=== PATIENT | male | born 1930 | race Caucasian/White ===

== ENCOUNTER 2017-01-21 01:51 | Emergency (ER) | payer MEDICARE, BC ==
[2017-01-21] MEDS ORDERED: Morphine 2 MG/ML SYRINGE ONE (02:28)
--- OUTSIDE RECORDS SUMMARY | 2017-01-22 13:20 | XMS | Clinical Summary ---
:1930 Author Organization [facility] Address [address] [place] [address] Phone Care Team Providers Name Role Phone , Primary Care Provider Unavailable Allergies Not on File Current Medications Not on file Active Problems Not on file Social History Tobacco Use Types Packs/Day Years Used Date Never Assessed Sex Assigned at Date Recorded Not on file Last Filed Vital Signs Not on file Plan of Treatment Not on file Results Not on filefrom Last 3 Months
== END 2017-01-21 04:12 | disposition home or self-care (01) ==
LOC: ERS 01:51
DX: R33.9 Retention of urine, unspecified (principal); E78.5 Hyperlipidemia, unspecified; I10 Essential (primary) hypertension
CPT/HCPCS: 51703; J2270

== ENCOUNTER 2017-10-28 10:38 | Observation (INO) | payer MEDICARE, BC ==
[2017-10-28 11:15] LABS: Clarity CLOUDY (Clear); Leukocyte Unable to Interpret (Negative); Nitrite Unable to Interpret (Negative); Specific Gravity, Urine 1.013 (1.002-1.036)
[2017-10-28 11:16] LABS: Bilirubin Unable to Interpret (Negative); Blood, Urine Unable to Interpret (Negative); Glucose, Urine (Dipstick) Unable to Interpret mg/dL (Negative); Protein, Urine (Dipstick) Unable to Interpret mg/dL (Neg-Trace); RBC/HPF GREATER THAN 50-TNTC HPF (0-3); Urobilinogen UNABLE TO INTERPRET mg/dL (0.2-1.0)
[2017-10-28 11:17] LABS: Bacteria/HPF None Seen HPF (None Seen); Hyaline Casts/LPF NONE SEEN LPF (0-3 Hyaline); Other Microscopic Description Less than 2 mL rec'd; Squamous Epithelial None Seen HPF (0-3)
[2017-10-28 11:55] LABS: #Eosinphils 0.1 thou/uL (0.0-0.7); #Lymphocytes 0.9 thou/uL (1.20-3.40); #Monocytes 0.5 thou/uL (0.11-0.59); #Neutrophils 4.6 thou/uL (1.40-6.50); %Basophils 0.4 % (0.0-1.0); %Eosinophils 1.3 % (0.0-10.0); %Lymphocytes 15.2 % (21.0-51.0); %Monocytes 7.7 % (0.0-10.0); %Neutrophils 75.5 % (42.0-75.0); Hemoglobin 13.4 g/dL (14.0-18.0); Mean Corpuscular HGB CONC 33.6 g/dL (32.0-36.0); Mean Corpuscular Hemoglobin 34.3 pg (27.0-31.0); Mean Platelet Volume 7.7 fL (7.4-10.4); Platelet Count 224 thou/uL (130-400); RBC Distribution Width 12.7 % (11.5-14.5); Red Blood Cell (RBC) Count 3.91 mill/uL (4.70-6.10); White Blood Cell (WBC) Count 6.1 thou/uL (4.8-10.8)
[2017-10-28 12:03] LABS: INR-International Normal Ratio 1.1; PTT 31.5 SEC (22.9-36.1)
[2017-10-28 12:16] LABS: Anion Gap 12 mmol/L (10-20); BUN (Urea Nitrogen) 23 mg/dL (8.4-25.7); Calc. Creatinine Clearance 0 mL/min (70-130); Calcium 9.7 mg/dL (7.8-10.44); Carbon Dioxide 25 mmol/L (23-31); Chloride 105 mmol/L (98-107); Estimated GFR-MDRD 57; Glucose 108 mg/dL (83-110); Potassium 4.9 mmol/L (3.5-5.1); Sodium 137 mmol/L (136-145)
[2017-10-28] MEDS ORDERED: Lidocaine 2% Jelly 5 ML TUBE ONE ×2 (13:22→13:29)
[2017-10-28] MEDS ORDERED: cefTRIAXone\\ROCEPHIN 1 GM VIAL ONE (15:18)
[2017-10-28] MEDS ORDERED: Communication Order-Pharmacy FS PRN (18:26)
[2017-10-28 18:27] VITALS: BMI 21.9
[2017-10-28] MEDS ORDERED: Polyethylene Glycol 3350 17 GM Packet PO SCH ×2 (22:45)
[2017-10-28] MEDS ORDERED: Atorvastatin Calcium 10 MG TAB PO SCH (23:00)
--- NOTE | 2017-10-29 00:47 | CON ---
DATE OF CONSULTATION: 10/28/2017 HISTORY OF PRESENT ILLNESS: This is an 86-year-old white male who I was asked to see because of hernandez s hematuria and inability to pass a Sapp catheter by the nursing staff and ER physician. I started seeing this patient in my office in 07/2016 and at that point, he had gross hematuria. He had a hist ory of having prostate cancer, had a robotic radical prostatectomy by Dr. Mojica in [place] few years back, prior to that and then had salvage radiation therapy. He has a workup at that time that inclu ded a 3-phase CT scan that showed a hyperdense right renal cyst. He could not have an office cystosc opy because of anastomotic stricture with a stitch at the anastomosis and a calcification there. He required OR procedure to do this. His bladder did not have anything to suggest bladder cancer. He h as had a couple of cystos since that time as well as VIU and has had difficulty emptying whenever we do an office cysto, so we had stopped doing those. He said he was doing fine until yesterday when he started having some blood in his urine and passing some clots and came in today to the emergen cy center. His urinalysis showed many red cells, very few white cells, no bacteria. No balloon was inflated while the ER staff had tried to place a Sapp catheter. His hemoglobin is 13.4, his white c ount is 6.1. His platelet count was 224. His creatinine was normal. Vital signs were normal. PAST MEDICAL HISTORY: Prostate cancer, hypertension, chronic renal insufficiency, elevated cholester ol, history of transfusion. PAST SURGICAL HISTORY: Includes prostate surgery, appendectomy, cataract surgery, hemorrhoidectomy. GI bleed. Back procedure. ALLERGIES: SULFA. ROUTINE MEDICATIONS: Medications have included aspirin, pravastatin, lisinopril. PHYSICAL EXAMINATION: ABDOMEN: No flank tenderness. No abdominal tenderness. A bladder scan showed between 215 and 245 m L in the bladder. He is not circumcised. There is no phimosis. Testicles are descended without mas s or tenderness. I went ahead with his permission, sterilely prepped him with Betadine, placed 2% Xylocaine jelly topi krystle per urethra and then attempted to pass an 18-Haitian coude catheter which met obstruction at the bulb/anastomosis. We were unable to get by this. I was able to feed a 5 Haitian Pollack catheter ea sily through this into the bladder draining a pink colored urine. Fed a guidewire through this and a ttempted to pass an 18 and a 16 Haitian [place] without success. At this point, we brought in braden ms and followers, a filiform easily went in. We dilated him up to 18 Haitian, but we could not get an 18 or 16 [place] tip over across this with aid of a catheter guide and the filiforms. At this poin t, we removed both of these and we attempted one more time with an 18-Haitian coude and it did pass by this. His urine is grossly bloody. There are no current problems with clots, seems to be draining well. We will go ahead and send a urine for culture. He received 1 gram of Rocephin right after the culture was sent. 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 We will see how he is doing tomorrow. If he still bloody in a couple of days, we will probably have to take him to the OR to look inside. We may repeat a CAT scan to see what his urine looks like as t he next day progresses. We will check a hemoglobin on in the morning. I think he should stay off hi s aspirin and certainly not receive any Lovenox. We can hand irrigate the catheter as needed.
[2017-10-29 05:26] LABS: Hemoglobin 13.7 g/dL (14.0-18.0)
[2017-10-29] MEDS ORDERED: Ondansetron HCl/PF 4 MG/2 ML Vial IVP PRN (05:41)
--- NOTE | 2017-10-29 06:23 | HP ---
CODE STATUS: FULL CODE. PRIMARY CARE PHYSICIAN: Dr. Burak Carlson TIME OF EVALUATION: 5:40 a.m. CHIEF COMPLAINT: "I saw blood in my urine". HISTORY OF PRESENT ILLNESS: This is an 86-year-old male patient with past medical history of prostat e cancer followed by Dr. Goodwin as outpatient for this problem. He has had previous episode of hemat uria that had stopped by itself. The patient came to the hospital at this time because he noticed th at he was having persistent hematuria that was significant since 9:00 a.m., no clear triggers, no all eviating factors. No fever, no chills. Dr. Goodwin has seen the patient. A Sapp catheter has been placed. Symptoms were reported as severe by the patient. REVIEW OF SYSTEMS: CONSTITUTIONAL: No fever, no chills, no generalized weakness. RESPIRATORY: No cough, sputum production or shortness of breath. CARDIOVASCULAR: No chest pain, palpitations, shortness of breath. GASTROINTESTINAL: No nausea, no vomiting, no diarrhea or abdominal pain. BOOT MAKER: No dizziness, headache or feeling lightheaded. GENITOURINARY: The patient has hematuria, need for Sapp placement, has had some obstruction of the Sapp during the night that has resolved with flushing the Sapp catheter. EXTREMITIES: No leg swelling. All other systems were reviewed and negative except for the findings mentioned above. PAST MEDICAL HISTORY: Hyperlipidemia, high cholesterol, hypertension. PAST SURGICAL HISTORY: Appendectomy, prostatectomy, tonsillectomy, inguinal hernia repair. FAMILY HISTORY: Positive for brother having a stroke. PSYCHIATRIC HISTORY: No previous psychiatric history. SOCIAL HISTORY: The patient drinks socially every week. No drugs. No smoking history. ALLERGIES: SULFA. REPORTED MEDICATIONS: Aspirin, lisinopril, simvastatin. PHYSICAL EXAMINATION: VITAL SIGNS: On presentation, blood pressure 185/82, heart rate 81, respiratory rate was 16, tempera ture 98.4, oxygen saturation 97 on room air. GENERAL APPEARANCE: The patient is alert, oriented, in no acute distress. HEENT: Eyes; normal conjunctivae. Moist oral mucosa. Anicteric. NECK: No JVD. RESPIRATORY: Bilateral air entry. No rales, no wheezing. Symmetrical expansion. CARDIOVASCULAR: Normal rate, regular rhythm. No murmurs, no gallop. No edema. ABDOMEN: Soft, normal bowel sounds. MUSCULOSKELETAL: Baseline range of motion and strength. No tenderness. SKIN: Warm and intact. No pallor, no rash, no redness. NEUROLOGIC: Baseline sensory. No evidence of any new focal weakness. Baseline speech. Cranial ner ves seem to be intact. PSYCHIATRIC: Good mood. No anxiety, oriented, normal judgment. GENITOURINARY: The patient had urinary obstruction with hematuria, during Sapp placement. SIGNIFICANT LABORATORY DATA: Labs were reviewed. White count 6.1, hemoglobin 13.4. Repeat hemoglob in 13.7, platelet count 224. Coagulation was normal. Chemistry: Sodium 137, potassium 4.9, chlorid e 105, carbon dioxide 25, anion gap 12, BUN 23, creatinine 1.1, GFR 57, glucose 108, calcium 9.7. Ur ine was reviewed. The patient has RBCs greater than 50 too numerous to count, white count 4-6. ASSESSMENT AND PLAN: The patient will be placed in the hospital with following medical problems: 1. Hematuria, the patient has a history of prostate cancer, status post surgery, multiple episodes o f hematuria. We will follow Dr. Goodwin's recommendations. 2. Possible urinary tract infection. There is some white cells in the urine, but could be just from the bleeding. The patient was started on Rocephin. We will continue for now, a urine culture was s ent, can step down antibiotics if urine culture is negative. 3. History of hypertension, was initially uncontrolled, reconcile home meds, adjust treatment as nee ded. 4. High cholesterol, reconcile home meds. Low cholesterol diet is advised. 5. History of chronic kidney disease, GFR 57, stage 3. This seems to be stable. 6. Deep venous thrombosis prophylaxis. We will avoid Lovenox, we will place on SCDs.
--- NOTE | 2017-10-29 08:51 | PDOC.PN ---
- Subjective Encounter Start Date: 10/29/17 Encounter Start Time: 09:25 Patient seen and examined with by the bedside. Patient states that he had few clots this morning. I confirmed with nurse who stated that patient indeed had few clots that were obstructing flow at the smith catheter. Smith was flushed and urine was clear afterwards. Patient states that he is worried to go home due to clots otherwise denies fever, chills, headaches, suprapubic pain, urinary retention - Objective Resuscitation Status: Resuscitation Status FULL:Full Resuscitation Vital Signs & Weight: Vital Signs (12 hours) Temp Pulse Resp BP Pulse Ox 10/29/17 07:55 99.3 F 84 20 10/29/17 07:39 99.3 F 84 20 134/100 H 94 L 10/29/17 03:15 97.9 F 67 16 135/62 97 10/28/17 23:23 97.4 F L 65 20 157/71 H 97 Weight Weight 144 lb 3 oz I&O: 10/28/17 10/29/17 10/30/17 06:59 06:59 06:59 Intake Total 830 240 Output Total 1750 175 Balance -920 65 Result Diagrams: 10/29/17 05:12 10/28/17 11:43 Phys Exam - Physical Examination HEENT: PERRLA, moist MMs Neck: no JVD Respiratory: no wheezing, no rales, no rhonchi, clear to auscultation bilateral Cardiovascular: RRR, no significant murmur, no rub Gastrointestinal: soft, non-tender, no distention smith is in place and draining clear Urine Musculoskeletal: no edema, pulses present Neurological: non-focal, normal sensation, moves all 4 limbs Psychiatric: normal affect, A&O x 3 Skin: no rash, normal turgor Dx/Plan (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 Currently urine is clear. Urologist is on the case and has decided to send the patient home with a smith catheter. Continue Empiric IV antibiotics. will follow up with urology for further recommendation and possible discharge if urine stays clear. Will continue to hold AsA and all anticoagulation. (2) Anemia due to blood loss, acute Code(s): D62 - ACUTE POSTHEMORRHAGIC ANEMIA Status: Resolved Comment: H/H is stable (3) Dyslipidemia Code(s): E78.5 - HYPERLIPIDEMIA, UNSPECIFIED Status: Chronic (4) HTN (hypertension) Code(s): I10 - ESSENTIAL (PRIMARY) HYPERTENSION Status: Chronic - Plan cont current plan of care, DVT proph w/SCDs * . Review of Systems - Review of Systems Genitourinary: Hematuria - Medications/Allergies Allergies/Adverse Reactions: Allergies Allergy/AdvReac Type Severity Reaction Status Date / Time Sulfa (Sulfonamide Allergy Verified 10/28/17 18:22 Antibiotics) Medications: Current Medications Atorvastatin Calcium (Lipitor) 10 mg PO HS [facility] Cefpodoxime Proxetil (Vantin) 200 mg PO 0600,1800 [facility] Coenzyme Q10 (Coenzyme Q10) 200 mg PO DAILY [facility] Last Admin: 10/29/17 09:30 Dose: 200 mg Iron/Minerals/Multivitamins (Theragran M) 1 tab PO DAILY [facility] Last Admin: 10/29/17 09:30 Dose: 1 tab Lisinopril (Zestril) 2.5 mg PO QAM [facility] Last Admin: 10/29/17 09:30 Dose: 2.5 mg Miscellaneous Information (Communication Order-Pharmacy) 1 each FS PRN PRN PRN Reason: .HOLD ASA, LOVENOX Ondansetron HCl (Zofran) 4 mg IVP Q6H PRN PRN Reason: Nausea/Vomiting Polyethylene Glycol (Miralax) 17 gm PO HS [facility]
[2017-10-29] MEDS ORDERED: UBIDECARENONE 200 MG PO SCH (09:00)
[2017-10-29] MEDS ORDERED: Lisinopril 2.5 MG TAB PO SCH (09:00)
[2017-10-29] MEDS ORDERED: Non-Formulary Item 1 EACH (Multivitamin [Multi-Day Vitamins] 1 TABLET) PO SCH (09:00)
[2017-10-29] MEDS: Ubidecarenone 50 MG CAP PO SCH (09:30)
[2017-10-29] MEDS: Lisinopril 2.5 MG TAB PO SCH (09:30)
[2017-10-29] MEDS: Multivitamin W/ Minerals 1 TAB PO SCH (09:30)
--- NOTE | 2017-10-29 14:47 | HP ---
HISTORY OF PRESENT ILLNESS: Patient is an 86-year-old male with past medical history of recurrent hematuria, prostate cancer status post prostatectomy and radiation, urinary retention, hyperlipidemia, hypertension who is presenting to the ED with a chief complaint of hematuria and urinary retention. Per the patient, his hematuria started 5 weeks prior to this hospital visit 10/28/2017 and resolved spontaneously. However, this morning 10/28/2017, the patient started having hematuria with clots; therefore, the patient spoke to his urologist/oncologist who then told the patient to come to the emergency room to be examined. Patient states some discomfort due to urinary retention. The patient denies any associated pain; however, states that he does had only discomfort. Patient states that he has had this hematuria in the past. Last time patient had similar episode was 08/06/2016. Per patient, on 09/03/2016, he also had a cystoscopy done by Dr. Burton. The patient denies fever, chills, nausea, vomiting, abdominal pain, suprapubic pain, back pain. REVIEW OF SYSTEMS: Positive for hematuria and positive for urinary retention. Otherwise, as documented in the HPI, all other systems were reviewed and are negative. PAST MEDICAL HISTORY: The patient has history of hypertension, hyperlipidemia, prostate cancer, status post prostatectomy and radiation. ALLERGIES: SULFA, ANTIBIOTICS, hives. PAST SURGICAL HISTORY: Patient have surgical history of appendectomy, surgical history of prostatectomy, surgical history of tonsillectomy, and inguinal hernia repair. PSYCHIATRIC HISTORY: The patient denies any psychiatric history. SOCIAL HISTORY: The patient states that he drinks a beer or two every now and then. Patient denies any drug use. The patient denies smoking for the past 50 years. The patient states that he quit 50 years ago. FAMILY HISTORY: Not obtained. MEDICATIONS: The patient states that he takes: 1. Aspirin 81 mg. 2. Lisinopril 20 mg once a day. 3. Simvastatin 40 mg once a day. PHYSICAL EXAMINATION: VITAL SIGNS: Blood pressure is 185/82, pulse is 81, respiratory rate of 16, temperature of 98.4, pain scale of 0, oxygen saturation of 97 on room air. GENERAL: The patient is lying comfortably in bed, has his glasses on, does not appear to be in any acute distress. The patient is able to speak in full sentences. HEENT: Normocephalic, atraumatic. Eyes anicteric. No pallor. Pupils equally round and reactive to light. Extraocular movements intact. Mucous membranes are moist. CARDIOVASCULAR: Regular rate and rhythm, no murmurs, no gallops. RESPIRATORY: Clear to auscultation bilaterally. No wheezes, no crackles. ABDOMEN: Soft, mild tenderness at the suprapubic region. Normal bowel sounds. NEUROLOGIC: Cranial nerves II-XII intact, 5/5 upper extremity and lower extremity strength. UROGENITAL: Sapp is inserted with red tinged urine draining out of Sapp. No edema, no erythema noted around the penis. PSYCHIATRIC: The patient is alert, oriented x3, not in distress. The patient does not appear to be anxious. LABORATORY DATA: WBC is 6.1, hemoglobin is 13.4, hematocrit is 39.9, platelet is 224. Coags: PT 14.0, INR 1.1, PTT 31.5. Chemistry: Sodium is 137, potassium is 4.9, chloride 105, carbon dioxide 25, BUN of 23, creatinine of 1.21 , glucose of 108. Urinalysis greater than 50 of RBCs in the urine. Urine WBC is 4-6, everything else cannot be interpreted. ASSESSMENT AND PLAN: 1. 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 2. 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 3. Hypertension. 4. Hyperlipidemia. 5. History of prostate cancer, status post prostatectomy and radiation. PLAN: 1. For the hematuria, urologist has been consulted. We will follow up with the urologist regarding further plans. The patient has been given ceftriaxone empirically for any infectious etiology due to invasive manipulation. We will hold aspirin at this point since patient is having hematuria. 2. For patient's urinary retention, a Sapp has been placed and the patient made 350 mL of urine. We will keep the Sapp in place. We will follow up urine cultures. I will follow up with urology's recommendations. 3. History of prostate cancer, status post prostatectomy and radiation. Per patient, he has been stable and has not had any problem with his prostate status post prostatectomy and radiation. We will monitor the patient closely. 4. Hypertension. We will continue the patient on his home dose of lisinopril 20 mg. 5. Hyperlipidemia. Continue patient on simvastatin 40 mg p.o. 6. DVT and GI prophylaxis. Patient is currently eating, so no chemical GI prophylaxis is necessary. For DVT prophylaxis, we will hold off on DVT prophylaxis since patient is having hematuria. DISPOSITION: The patient is currently being admitted under observation and we will follow up with urologist regarding further treatment. MTDD
[2017-10-29] MEDS ORDERED: cefTRIAXone\\ROCEPHIN 1 GM in Sodium Chloride 0.9% 100 ML IVPB SCH (15:00)
[2017-10-29] MEDS ORDERED: Atorvastatin Calcium 10 MG TAB PO SCH (21:00)
[2017-10-29] MEDS ORDERED: Polyethylene Glycol 3350 17 GM Packet PO SCH (21:00)
[2017-10-29] MEDS ORDERED: Pravastatin Sodium 40 MG TAB PO SCH (21:00)
[2017-10-30 05:34] LABS: #Eosinphils 0.3 thou/uL (0.0-0.7); #Lymphocytes 1.2 thou/uL (1.20-3.40); #Monocytes 0.8 thou/uL (0.11-0.59); #Neutrophils 5.7 thou/uL (1.40-6.50); %Eosinophils 3.7 % (0.0-10.0); %Lymphocytes 14.6 % (21.0-51.0); %Monocytes 10.2 % (0.0-10.0); %Neutrophils 71.4 % (42.0-75.0); Hemoglobin 13.5 g/dL (14.0-18.0); Mean Corpuscular HGB CONC 33.7 g/dL (32.0-36.0); Mean Corpuscular Hemoglobin 34.2 pg (27.0-31.0); Mean Platelet Volume 7.5 fL (7.4-10.4); Platelet Count 225 thou/uL (130-400); RBC Distribution Width 12.6 % (11.5-14.5); Red Blood Cell (RBC) Count 3.94 mill/uL (4.70-6.10)
[2017-10-30 05:55] LABS: Anion Gap 16 mmol/L (10-20); BUN (Urea Nitrogen) 18 mg/dL (8.4-25.7); Calc. Creatinine Clearance 43 mL/min (70-130); Calcium 9.3 mg/dL (7.8-10.44); Carbon Dioxide 21 mmol/L (23-31); Chloride 107 mmol/L (98-107); Estimated GFR-MDRD 60; Glucose 103 mg/dL (83-110); Potassium 4.5 mmol/L (3.5-5.1); Sodium 139 mmol/L (136-145)
--- NOTE | 2017-10-30 08:11 | PDOC.PN ---
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 Currently urine is clear. Urologist is on the case and has decided to send the patient home with a smith catheter. Continue Empiric IV antibiotics. will follow up with urology for further recommendation and possible discharge if urine stays clear. Will continue to hold AsA and all anticoagulation. (2) Dyslipidemia Code(s): E78.5 - HYPERLIPIDEMIA, UNSPECIFIED Status: Chronic (3) HTN (hypertension) Code(s): I10 - ESSENTIAL (PRIMARY) HYPERTENSION Status: Chronic - Plan * . Review of Systems - Medications/Allergies Allergies/Adverse Reactions: Allergies Allergy/AdvReac Type Severity Reaction Status Date / Time Sulfa (Sulfonamide Allergy Verified 10/28/17 18:22 Antibiotics) Medications: Current Medications Atorvastatin Calcium (Lipitor) 10 mg PO [facility] Last Admin: 10/29/17 21:43 Dose: 10 mg Cefpodoxime Proxetil (Vantin) 200 mg PO 0600,1800 [facility] Last Admin: 10/30/17 05:14 Dose: 200 mg Coenzyme Q10 (Coenzyme Q10) 200 mg PO DAILY [facility] Last Admin: 10/29/17 09:30 Dose: 200 mg Iron/Minerals/Multivitamins (Theragran M) 1 tab PO DAILY [facility] Last Admin: 10/29/17 09:30 Dose: 1 tab Lisinopril ([facility]est[facility]) [facility] Last Admin: 10/29/17 09:30 Dose: 2.5 mg Miscellaneous Information (Communication Order-Pharmacy) 1 each FS PRN PRN PRN Reason: .HOLD ASA, LOVENOX Ondansetron HCl (Zofran) 4 mg IVP Q6H PRN PRN Reason: Nausea/Vomiting Polyethylene Glycol (Miralax) 17 gm PO HS [facility] Last Admin: 10/29/17 21:43 Dose: 17 gm
[2017-10-30 08:14] VITALS: BP 130/65; TEMP 98.1
[2017-10-30] MEDS: Lisinopril 2.5 MG TAB PO SCH (09:32)
[2017-10-30] MEDS: Ubidecarenone 50 MG CAP PO SCH (09:33)
[2017-10-30] MEDS: Multivitamin W/ Minerals 1 TAB PO SCH (09:33)
--- NOTE | 2017-10-30 22:16 | PRG ---
DATE OF SERVICE: 10/30/2017 SUBJECTIVE: The patient was seen and examined by me this morning with the by the bedside. The patient states that he is feeling much better. There is no hematuria. This morning, he denies any f ever, chills, nausea, or vomiting. OBJECTIVE: VITAL SIGNS: Temperature is 98.1, pulse is 72, blood pressure is 130/65, respiratory rate of 20, O2 sat of 95% on room air. GENERAL APPERANACE: The patient is seen lying in bed comfortably, not in acute distress. HEENT: Normocephalic, atraumatic. Pupils are equal, round, and reactive to light. Patient is weari ng glasses. Extraocular motors were intact. NECK: No JVD. CARDIOVASCULAR: Positive S1, S2, regular rate and rhythm. No murmurs, no gallops appreciated. LUNGS: Clear to auscultation bilaterally. No wheezes, no rales. ABDOMEN: Soft, nontender, nondistended, positive bowel sounds in all quadrants. UROGENITAL: Patient had his Sapp catheter strapped to the right lower extremity, draining clear uri ne with no blood-tinged urine.
--- NOTE | 2017-10-30 23:34 | DIS ---
DISCHARGE DIAGNOSES: 1. 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 2. Anemia due to acute blood loss. 3. Dyslipidemia. 4. Hypertension. HOSPITAL COURSE: This is an 86-year-old male with past medical history of prostate cancer, status po st radiation and prostatectomy. The patient has history of urinary retention and the patient stated that he was having hematuria, which was seen 5 weeks prior and resolved spontaneously; however, comin g in the hospital this time around because hematuria had some blood clots with it. Patient was evalu ated in the ER by urologist. Sapp catheter was placed due to invasive manipulation when Sapp catheter was being placed. The patient was then admitted to the medical floor. The patient was the n given IV fluids and patient's antiplatelets were held. No anticoagulation was given due to patient 's hematuria after a couple of days, patient's hematuria resolved spontaneously. Urologist cleared t he patient for discharge and for patient to follow up with him as an outpatient. The patient was dis charged home on nitrofurantoin. LABORATORY DATA: Hemoglobin was around 13 and was stable. There are no significant labs noted. DISCHARGE MEDICATIONS: Kindly refer to electronic medical records. DISCHARGE INSTRUCTIONS: Disposition: Patient was discharged home and was advised to follow up with urologist on the . Patient was also advised to keep the Sapp in place. The patient was discharg ed on antibiotics. discharge took about 31 minutes.
== END 2017-10-30 11:56 | disposition home or self-care (01) ==
LOC: ERS 10:38 → 2SW 18:11
PROVIDERS: ADMIT Internal Medicine; ATTEND Internal Medicine
DX: N30.41 Irradiation cystitis with hematuria (principal); D62 Acute posthemorrhagic anemia; E78.5 Hyperlipidemia, unspecified; I10 Essential (primary) hypertension; Z79.82 Long term (current) use of aspirin; Z79.899 Other long term (current) drug therapy; Z88.2 Allergy status to sulfonamides
CPT/HCPCS: 51702; 80048 ×2; 85018; 85025 ×2; 85610; 85730; 87086; 96365; 99284; G0378 ×2; 36415; 81003; 81015; J0696

== ENCOUNTER → 2017-11-25 | Day surgery (SDC) | payer MEDICARE, BC ==
[2017-11-24 11:34] VITALS: BMI 23.2
[~2017-11-25] MED LIST: Dexamethasone 20 MG/5 ML VIAL ONE; Fentanyl 100 MCG/2 ML VIAL ONE; Iothalamate Meglumine 60% 50 ML VIAL FS ONE; Lidocaine 1% PF 5 ML VIAL ONE; Ondansetron HCl/PF 4 MG/2 ML Vial ONE; PROPOFOL 200 MG/20 ML VIAL ONE; cefTRIAXone\\ROCEPHIN 2 GM in Sodium Chloride 0.9% 100 ML IVPB SCH
[2017-11-25 15:16] LABS: #Eosinphils 0.1 thou/uL (0.0-0.7); #Lymphocytes 1.5 thou/uL (1.20-3.40); #Monocytes 0.7 thou/uL (0.11-0.59); %Basophils 0.3 % (0.0-1.0); %Lymphocytes 20.2 % (21.0-51.0); %Monocytes 9.6 % (0.0-10.0); %Neutrophils 68.8 % (42.0-75.0); Hemoglobin 13.3 g/dL (14.0-18.0); Mean Corpuscular HGB CONC 33.3 g/dL (32.0-36.0); Mean Corpuscular Hemoglobin 33.4 pg (27.0-31.0); Mean Platelet Volume 7.4 fL (7.4-10.4); Platelet Count 245 thou/uL (130-400); RBC Distribution Width 12.3 % (11.5-14.5); Red Blood Cell (RBC) Count 3.98 mill/uL (4.70-6.10); White Blood Cell (WBC) Count 7.2 thou/uL (4.8-10.8)
[2017-11-25 15:31] LABS: INR-International Normal Ratio 1.1; Prothrombin Time 14.1 SEC (12.0-14.7)
[2017-11-25 15:32] LABS: PTT 30.8 SEC (22.9-36.1)
[2017-11-25 15:37] LABS: Anion Gap 15 mmol/L (10-20); BUN (Urea Nitrogen) 17 mg/dL (8.4-25.7); Calc. Creatinine Clearance 44 mL/min (70-130); Calcium 9.7 mg/dL (7.8-10.44); Carbon Dioxide 21 mmol/L (23-31); Chloride 105 mmol/L (98-107); Estimated GFR-MDRD 58; Glucose 95 mg/dL (83-110); Sodium 137 mmol/L (136-145)
--- NOTE | 2017-11-25 18:49 | RAD ---
RETROGRADE URETEROGRAM 11/25/17 HISTORY: Renal stones. FINDINGS/IMPRESSION: Intraoperative fluoroscopy was provided for retrograde study as performed by Dr. Goodwin. Four images are included. Opaque scope overlies the midline pelvis. Multiple images show contrast opacification o f nondilated ureters and renal collecting systems without filling defect reliably demonstrated. POS: MYLES
--- NOTE | 2017-11-25 21:16 | OP ---
DATE OF PROCEDURE: 11/25/2017 PREOPERATIVE DIAGNOSES: Gross hematuria, prostate cancer, anastomotic stricture. POSTOPERATIVE DIAGNOSES: Gross hematuria, prostate cancer, anastomotic stricture. PROCEDURES PERFORMED: Cysto, laser, VIU, bilateral retrograde pyelography, laser fulguration of blad hakan lesions, and difficult Sapp catheter placement. SPECIMENS REMOVED: None. SURGEON: Johan Goodwin MD ANESTHETIC: General. ESTIMATED BLOOD LOSS: Less than 50 mL. FINDINGS: He had no problems with the anterior urethra. He had a dense anastomotic stricture, which has been known about for a quite some time. This was opened up with the laser. He had two ureteral orifices with clear efflux and normal-appearing retrograde studies to my review. He had numerous te langiectatic vessels on the floor of the bladder consistent with his prior radiation, and these were fulgurated with the holmium laser at a low-wattage setting. He had a 20-English [place]-tip catheter placed at the end of the case, 20 mL placed in the balloon. OPERATIVE TECHNIQUE: Obtained written and verbal consent from the patient. After receiving IV antib iotics, he was taken to the operating suite. He was placed in the supine position on the treatment t able. PlexiPulses were placed on his lower extremities and turned on. He was given a general anesth etic and oral intubation. He was placed in the dorsal lithotomy position and sterilely prepped and d raped. Cystoscopy was performed with a 22-English sheath. This was passed down to the level of the s tricture and a 0.038 guidewire was then fed through the stricture. We used fluoroscopy to be sure th at was coiling in the bladder, which it was. We then went ahead and took this sheath off the guidewi re, leaving the guidewire in, and went in adjacent with a 22-English sheath and brought in a holmium l aser fiber 500 micro and used this to open up the stricture working only on the anterior surface and not on the posterior surface of the stricture. We did this until we could easily get the 22-English i n and by it. The bladder was then emptied and then examined both with a 30 and a 70-degree lens with the findings above. At this point, a 5-English [place]-tip catheter was flushed with contrast and ad vanced into the right ureteral orifice. Contrast was injected in the left ureteral orifice. Contras t was injected in a retrograde manner slowly about 12-15 mL, filling out the entire collecting system and then drainage films were taken. The right side was done in the same way. I did not see any abn ormalities and there was clear efflux, both before and after the retrograde study. We brought in a h olmium laser fiber and used this to fulgurate the lesions on the floor of the bladder. Once this was complete, we went ahead and removed the instruments, leaving the guidewire in place, brought in a co uncil-tip catheter, placed it over the guidewire and into the bladder, and inflated the balloon with 20 mL. We removed the guidewire. We hand irrigated and it was clear. It was hooked up to a leg bag . He was at this point taken out of the dorsal lithotomy position, awakened, extubated, and taken by a stretcher to the recovery room.
--- NOTE | 2017-12-01 09:07 | PQF ---
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 Check the appropriate box and include in your discharge summary. [ ] [ ] [ ] [ ] Please check this box if this does not apply to this patient [ ] Unable to determine [ ] Other diagnosis: Review the following information and exercise your independent professional judgment in responding to the clarification. Based upon the clinical findings, risk factors, and treatment, please clarify if you are treating one of the above probable or suspected diagnoses. Physician Signature: Date Time MTDD
--- NOTE | 2018-01-11 08:39 | PQF ---
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 [ ] [ ] Dr. Johan Goodwin The documentation in this patients record requires clarification to ensure coding compliance and accuracy. Check the appropriate box and include in your discharge summary/addendum. [ ] [ ] [ ] Please check this box if this does not apply to this patient [ ] Unable to determine [ ] Other diagnosis/procedure: Review the following information and exercise your independent professional judgment in responding to the clarification. Based upon the clinical findings, risk factors, and treatment, please clarify if you are treating one of the above probable or suspected diagnoses. Physician Signature: Date Time MTDD
== END ==
LOC: SDC 11:46
PROVIDERS: ATTEND Urology
PROC: 0T5B8ZZ Destruction of Bladder, Via Natural or Artificial Opening Endoscopic (ICD-10-PCS; principal; 2017-11-25)
PROC: 0T7D8ZZ Dilation of Urethra, Via Natural or Artificial Opening Endoscopic (ICD-10-PCS; 2017-11-25)
PROC: BT141ZZ Fluoroscopy of Kidneys, Ureters and Bladder using Low Osmolar Contrast (ICD-10-PCS; 2017-11-25)
DX: N32.89 Other specified disorders of bladder (principal); N35.9 Urethral stricture, unspecified; I12.9 Hypertensive chronic kidney disease with stage 1 through stage 4 chronic kidney disease, or unspecified chronic kidney disease; N18.9 Chronic kidney disease, unspecified; Z85.46 Personal history of malignant neoplasm of prostate; Z79.899 Other long term (current) drug therapy; Z88.2 Allergy status to sulfonamides
CPT/HCPCS: 52005; 52224; 74420; 80048; 85025; 85610; 85730; C1758; 36415; J0131; J0696; J1100; J2001; J2405; J2704; J3010; J7050; Q9961

== ENCOUNTER 2017-12-15 21:12 | Emergency (ER) | payer MEDICARE, BC ==
[2017-12-15 22:38] LABS: #Eosinphils 0.2 thou/uL (0.0-0.7); #Lymphocytes 1.6 thou/uL (1.20-3.40); #Monocytes 0.8 thou/uL (0.11-0.59); #Neutrophils 4.4 thou/uL (1.40-6.50); %Basophils 0.6 % (0.0-1.0); %Eosinophils 2.3 % (0.0-10.0); %Monocytes 10.7 % (0.0-10.0); %Neutrophils 63.4 % (42.0-75.0); Hemoglobin 12.3 g/dL (14.0-18.0); Mean Corpuscular HGB CONC 33.7 g/dL (32.0-36.0); Mean Corpuscular Hemoglobin 34.1 pg (27.0-31.0); Mean Platelet Volume 7.7 fL (7.4-10.4); Platelet Count 306 thou/uL (130-400); RBC Distribution Width 12.3 % (11.5-14.5)
[2017-12-15 22:39] LABS: Bilirubin Negative (Negative); Blood, Urine Large (Negative); Clarity CLOUDY (Clear); Glucose, Urine (Dipstick) Negative (Negative); Leukocyte Large (Negative); Nitrite Negative (Negative); Protein, Urine (Dipstick) 100 mg/dL (Neg-Trace); Specific Gravity, Urine 1.004 (1.002-1.036)
[2017-12-15 22:40] LABS: Bacteria/HPF None Seen HPF (None Seen); Hyaline Casts/LPF 0-3 HYALINE CAST LPF (0-3 Hyaline); Pathc Cast-AUWi Flag 0.14 (0-2.49); RBC/HPF GREATER THAN 50-TNTC HPF (0-3); Squamous Epithelial 0-3 HPF (0-3)
[2017-12-15 22:43] LABS: Yeast-All Forms None Seen HPF (None Seen)
[2017-12-15 22:58] LABS: ALT (SGPT) 18 U/L (8-55); AST (SGOT) 22 U/L (5-34); Albumin 3.7 g/dL (3.4-4.8); Alkaline Phosphatase 86 U/L (40-150); Anion Gap 11 mmol/L (10-20); BUN (Urea Nitrogen) 23 mg/dL (8.4-25.7); Bilirubin, Total 1.3 mg/dL (0.2-1.2); Calc. Creatinine Clearance 0 mL/min (70-130); Calcium 9.1 mg/dL (7.8-10.44); Carbon Dioxide 24 mmol/L (23-31); Chloride 106 mmol/L (98-107); Estimated GFR-MDRD 50; Globulin 2.8 g/dL (2.4-3.5); Glucose 104 mg/dL (83-110); Potassium 4.1 mmol/L (3.5-5.1); Protein, Total 6.5 g/dL (5.8-8.1); Sodium 137 mmol/L (136-145)
== END 2017-12-15 23:26 | disposition home or self-care (01) ==
LOC: ERS 21:12
DX: R31.9 Hematuria, unspecified (principal); R33.9 Retention of urine, unspecified; E78.5 Hyperlipidemia, unspecified; I10 Essential (primary) hypertension; Z79.899 Other long term (current) drug therapy
CPT/HCPCS: 36415; 51702; 80053; 81003; 81015; 85025; 87077; 87086; 87186

== ENCOUNTER 2017-12-20 22:19 | Observation (INO) | payer MEDICARE, BC ==
[2017-12-20 22:50] LABS: Blood, Urine Large (Negative); Clarity Cloudy (Clear)
[2017-12-20 22:51] LABS: Bilirubin Unable to Interpret (Negative); Glucose, Urine (Dipstick) Unable to Interpret mg/dL (Negative); Leukocyte Unable to Interpret (Negative); Nitrite Unable to Interpret (Negative); Protein, Urine (Dipstick) Unable to Interpret mg/dL (Neg-Trace); Urobilinogen UNABLE TO INTERPRET mg/dL (0.2-1.0)
[2017-12-20 22:52] LABS: pH, Urine 6.4 (5.0-9.0)
[2017-12-20 22:54] LABS: RBC/HPF GREATER THAN 50-TNTC HPF (0-3); Squamous Epithelial 0-3 HPF (0-3)
[2017-12-20 22:55] LABS: #Eosinphils 0.2 thou/uL (0.0-0.7); #Lymphocytes 1.4 thou/uL (1.20-3.40); #Monocytes 0.8 thou/uL (0.11-0.59); #Neutrophils 5.9 thou/uL (1.40-6.50); %Basophils 0.4 % (0.0-1.0); %Eosinophils 2.2 % (0.0-10.0); %Lymphocytes 17.1 % (21.0-51.0); %Monocytes 9.9 % (0.0-10.0); %Neutrophils 70.4 % (42.0-75.0); Hemoglobin 12.4 g/dL (14.0-18.0); Mean Corpuscular Hemoglobin 32.7 pg (27.0-31.0); Mean Platelet Volume 7.5 fL (7.4-10.4); Platelet Count 325 thou/uL (130-400); RBC Distribution Width 12.1 % (11.5-14.5); Red Blood Cell (RBC) Count 3.78 mill/uL (4.70-6.10); White Blood Cell (WBC) Count 8.3 thou/uL (4.8-10.8)
[2017-12-20 22:55] LABS: Bacteria/HPF 3+ HPF (None Seen); Hyaline Casts/LPF 0-3 HYALINE CAST LPF (0-3 Hyaline)
[2017-12-20 23:18] LABS: Anion Gap 11 mmol/L (10-20); BUN (Urea Nitrogen) 19 mg/dL (8.4-25.7); Calc. Creatinine Clearance 0 mL/min (70-130); Calcium 9.3 mg/dL (7.8-10.44); Carbon Dioxide 25 mmol/L (23-31); Chloride 105 mmol/L (98-107); Estimated GFR-MDRD 64; Glucose 101 mg/dL (83-110); Potassium 3.9 mmol/L (3.5-5.1); Sodium 137 mmol/L (136-145)
[2017-12-21 01:02] VITALS: BMI 22.2
[2017-12-21] MEDS ORDERED: Sodium Chloride 0.9% 1,000 ML IV SCH (01:15)
[2017-12-21 05:23] LABS: Hemoglobin 11.9 g/dL (14.0-18.0)
[2017-12-21] MEDS ORDERED: Ondansetron ODT 4 MG TAB PO PRN (05:23)
[2017-12-21] MEDS ORDERED: Acetaminophen 325 MG TAB PO PRN (05:23)
[2017-12-21] MEDS ORDERED: Bisacodyl 5 MG TAB PO PRN (05:23)
--- NOTE | 2017-12-21 07:26 | HP ---
CHIEF COMPLAINT: "Blood in my urine." HISTORIAN: Patient reliable. HISTORY OF PRESENT ILLNESS: This is an 87-year-old male with past medical history of hyperlipidemia, hypertension, presenting with hematuria. Per the patient, he had a Sapp catheter placed on Thursday due to urinary retention and the patient was started on antibiotics by Dr. Goodwin, the urologist and the patient states that this is not the first time that he has been having blood in the urine, he smith s had this before. At this point, he just felt like the amount of blood that were coming down in the Sapp was enough for him to come to the hospital, so he can be evaluated. Dr. Goodwin has been conta cted and states that we should just admit the patient on observation and he will come in the morning and come and examine the patient. At this point, patient denies any fever, nausea, vomiting, chills, abdominal pain, but admits to slight discomfort due to the Sapp irritation at the penile meatus. REVIEW OF SYSTEMS: Positive for irritation at the penis, urethral meatus, otherwise as documented in HPI. All other systems were reviewed and are negative. PHYSICAL EXAMINATION: VITAL SIGNS: Blood pressure is 160/83, pulse is 81, respiratory rate of 16, temperature of 98.3, oxy gen saturation of 99. GENERAL: The patient is alert, oriented x3, not in acute distress. The patient is lying comfortably in bed, able to speak in full sentences. HEENT: Normocephalic, atraumatic. Pupils are equally round and reactive to light. Extraocular move ments are intact. No scleral icterus. NECK: No JVD. Trachea is midline. Supple, nontender. LUNGS: Clear to auscultation bilaterally. No wheezing, no rales, no rhonchi is appreciated. CARDIAC : Positive S1, S2. Regular rate and rhythm. No murmurs, no gallops, no rubs appreciated. ABDOMEN: Nontender, nondistended. No guarding, no rigidity, no peritoneal signs. GENITOURINARY: The patient did have a Sapp catheter in place with blood tinged urine noted in the F oley. EXTREMITIES: Upper extremity. The patient did have 5/5 upper extremity strength and 5/5 lower extre mity strength with good pulses of the upper extremities and lower extremities. NEUROLOGIC: Cranial nerves II through XII grossly intact. No focal neurologic deficit noted. SKIN: Warm, dry, and intact. PSYCHIATRIC: Alert, oriented x3, normal affect. LABORATORY DATA: WBC 8.3, hemoglobin 12.4, hematocrit is 38.6, MCV 102.0, platelet is 325. Sodium 1 37, potassium 3.9. Chloride 105, carbon dioxide 25, anion gap of 11, BUN of 19, creatinine is 1.09, GFR 64, glucose 101, calcium is 9.3. Urinalysis, there is large blood in the urine. ASSESSMENT AND PLAN: This is an 87-year-old male being admitted for: 1. Hematuria. The patient did have large blood in the urine and a Sapp is in place. At this point , we are going to do H&H in the morning and follow up on the H&H in the morning to see the trend of p atient's hemoglobin. We have contacted urologist. Per urologist, we have to just admit the patient for observation and he will come and evaluate the patient in the morning. We will follow up with his recommendations. We will continue IV fluids. We will hold off all anticoagulation at this time. W e will do sequential compression devices for deep venous thrombosis prophylaxis. 2. Anemia of acute blood loss. The patient is having hematuria. At this time, we will just follow up on H&H and we will monitor the patient closely. 3. Microcytic anemia. Patient did have MCV of 102. We will monitor the patient. We will do B12 an d folate followup and we will treat the patient accordingly. 4. Deep venous thrombosis and gastrointestinal prophylaxis. We will do sequential compression devic es.
[2017-12-21] MEDS ORDERED: Nitrofurantoin Monohyd/M-Cryst 100 MG CAP PO SCH (09:00)
[2017-12-21] MEDS: Lisinopril 2.5 MG TAB PO SCH (09:18)
[2017-12-21] MEDS: Ubidecarenone 50 MG CAP PO SCH (09:18)
[2017-12-21] MEDS: Multivitamin W/ Minerals 1 TAB PO SCH (09:18)
[2017-12-21 10:19] LABS: Hemoglobin 12.2 g/dL (14.0-18.0)
[2017-12-21] MEDS: Sodium Chloride 0.9% 1,000 ML IV SCH ×2 (10:36→13:30)
[2017-12-21 11:15] LABS: Folate (Folic Acid) 14.3 ng/mL (7.0-31.4)
--- NOTE | 2017-12-21 15:51 | PDOC.EVN ---
Event Note - Event Note Event Note: Doing well. Admitted with hematuria. Has Sapp. Urine appears to be clearing. Urology plans to monitor overnight and do cysto in am if not cleared. Hgb stable.
[2017-12-21] MEDS ORDERED: Pravastatin Sodium 40 MG TAB PO SCH (21:00)
[2017-12-21] MEDS ORDERED: Polyethylene Glycol 3350 17 GM Packet PO SCH (21:00)
[2017-12-22] MEDS: Sodium Chloride 0.9% 1,000 ML IV SCH ×2 (02:18→14:42)
[2017-12-22 05:02] LABS: #Eosinphils 0.2 thou/uL (0.0-0.7); #Lymphocytes 1.3 thou/uL (1.20-3.40); #Monocytes 0.7 thou/uL (0.11-0.59); #Neutrophils 5.2 thou/uL (1.40-6.50); %Basophils 0.6 % (0.0-1.0); %Eosinophils 3.2 % (0.0-10.0); %Lymphocytes 17.2 % (21.0-51.0); %Monocytes 9.2 % (0.0-10.0); %Neutrophils 69.8 % (42.0-75.0); Hemoglobin 11.3 g/dL (14.0-18.0); Mean Corpuscular HGB CONC 32.1 g/dL (32.0-36.0); Mean Corpuscular Hemoglobin 32.9 pg (27.0-31.0); Mean Platelet Volume 7.7 fL (7.4-10.4); Platelet Count 290 thou/uL (130-400); RBC Distribution Width 12.1 % (11.5-14.5); Red Blood Cell (RBC) Count 3.44 mill/uL (4.70-6.10); White Blood Cell (WBC) Count 7.5 thou/uL (4.8-10.8)
[2017-12-22 05:09] LABS: Anion Gap 9 mmol/L (10-20); BUN (Urea Nitrogen) 15 mg/dL (8.4-25.7); Calc. Creatinine Clearance 48 mL/min (70-130); Calcium 8.7 mg/dL (7.8-10.44); Carbon Dioxide 25 mmol/L (23-31); Chloride 109 mmol/L (98-107); Estimated GFR-MDRD 68; Glucose 101 mg/dL (83-110); Sodium 139 mmol/L (136-145)
[2017-12-22] MEDS ORDERED: Saccharomyces boulardii 250 MG CAP PO SCH (09:00)
[2017-12-22] MEDS: Multivitamin W/ Minerals 1 TAB PO SCH (09:28)
[2017-12-22] MEDS: Lisinopril 2.5 MG TAB PO SCH (09:28)
[2017-12-22] MEDS: Ubidecarenone 50 MG CAP PO SCH (09:29)
[2017-12-22 11:51] VITALS: BP 144/67; TEMP 98.5
--- NOTE | 2017-12-23 13:01 | DIS ---
DATE OF ADMISSION: 12/21/2017 DATE OF DISCHARGE: 12/22/2017 DISCHARGE DIAGNOSES: 1. Hematuria. 2. Urinary tract infection with Pseudomonas. 3. Anemia of acute blood loss. 4. History of hypertension. 5. History of hyperlipidemia. 6. Urinary retention. HISTORY OF PRESENT ILLNESS: The patient is an 87-year-old male who had had a Sapp catheter recently placed for some urinary retention, subsequently developed some hematuria, got to the point where aleksander alexis was concerned and presented to the emergency department. Hemoglobin was 12.4, BUN 19, creatinin e 1.09. The patient had a urinalysis revealing large blood. He was seen by Urology in the ER who fe lt the patient needed to have overnight observation. HOSPITAL COURSE: The patient was placed in observation. His urine did subsequently clear fairly shanita ckly. His urine culture actually started growing Pseudomonas and we quickly had some sensitivities o n it. Fortunately, it remained sensitive to a number of oral options. The patient was otherwise asy mptomatic and vital signs were normal. PHYSICAL EXAMINATION: VITAL SIGNS: Temperature was 98.5, pulse 74, respirations 16, O2 sat 95% on room air, BP was 144/67. GENERAL APPEARANCE: He was awake and alert. HEART: Regular rate and rhythm. LUNGS: Clear bilaterally. ABDOMEN: Soft, nontender, nondistended with positive bowel sounds. No masses and no organomegaly. EXTREMITIES: Warm and dry. DISPOSITION: The patient was felt by Dr. Burton to be stable for discharge and recommended leaving t he Sapp catheter in maintaining oral antibiotics and he would follow up patient later in the week to remove the Sapp catheter. The patient is discharged to home. We will have activity level as amparo ated and regular diet. He will be on Cipro 500 mg p.o. b.i.d., multivitamin, Pravachol, Zestril, COQ 10, MiraLax and he will follow up with Dr. Burton as scheduled as well as Dr. Burak Carlson. He should return to the emergency department should he have any problems prior to that time.
== END 2017-12-22 14:25 | disposition home or self-care (01) ==
LOC: ERS 22:19 → 2SW 12-21 00:29
PROVIDERS: ADMIT Internal Medicine; ATTEND Internal Medicine
DX: N39.0 Urinary tract infection, site not specified (principal); R31.9 Hematuria, unspecified; D62 Acute posthemorrhagic anemia; I10 Essential (primary) hypertension; E78.5 Hyperlipidemia, unspecified; Z79.899 Other long term (current) drug therapy
CPT/HCPCS: 80048 ×2; 82607; 82746; 85014 ×2; 85018 ×2; 85025 ×2; 86850; 86900; 86901; 87077; 87086; 87184; 87186; 96361 ×2; 96365; 96366; 99284; G0378; 36415; 81003; 81015; A4216; J1956

== ENCOUNTER 2017-12-25 07:50 | Day surgery (SDC) | payer MEDICARE, BC ==
[2017-12-24 13:16] VITALS: BMI 22.8
[2017-12-25] MEDS ORDERED: Levofloxacin 500 mg/D5W 100 ml Premix Bag ONE (08:24)
[2017-12-25 08:32] LABS: #Basophils 0.1 thou/uL (0.0-0.2); #Eosinphils 0.3 thou/uL (0.0-0.7); #Lymphocytes 1.3 thou/uL (1.20-3.40); #Monocytes 0.6 thou/uL (0.11-0.59); #Neutrophils 5.7 thou/uL (1.40-6.50); %Basophils 0.6 % (0.0-1.0); %Eosinophils 3.5 % (0.0-10.0); %Lymphocytes 16.4 % (21.0-51.0); %Monocytes 7.8 % (0.0-10.0); %Neutrophils 71.7 % (42.0-75.0); Hemoglobin 12.8 g/dL (14.0-18.0); Mean Corpuscular HGB CONC 31.7 g/dL (32.0-36.0); Mean Corpuscular Hemoglobin 32.6 pg (27.0-31.0); Mean Platelet Volume 7.5 fL (7.4-10.4); Platelet Count 328 thou/uL (130-400); RBC Distribution Width 12.3 % (11.5-14.5); Red Blood Cell (RBC) Count 3.93 mill/uL (4.70-6.10)
[2017-12-25 08:50] LABS: Anion Gap 12 mmol/L (10-20); BUN (Urea Nitrogen) 19 mg/dL (8.4-25.7); Calc. Creatinine Clearance 39 mL/min (70-130); Calcium 9.5 mg/dL (7.8-10.44); Carbon Dioxide 24 mmol/L (23-31); Chloride 107 mmol/L (98-107); Estimated GFR-MDRD 52; Glucose 110 mg/dL (83-110); Potassium 4.3 mmol/L (3.5-5.1); Sodium 139 mmol/L (136-145)
[2017-12-25 09:02] LABS: INR-International Normal Ratio 1.1; PTT 30.3 SEC (22.9-36.1); Prothrombin Time 13.8 SEC (12.0-14.7)
[2017-12-25] MEDS ORDERED: Fentanyl 100 MCG/2 ML VIAL ONE ×3 (10:57→13:02)
--- NOTE | 2017-12-25 12:53 | OP ---
DATE OF PROCEDURE: 12/25/2017 PREOPERATIVE DIAGNOSES: Gross hematuria, prostate cancer, radiation cystitis. POSTOPERATIVE DIAGNOSES: Gross hematuria, prostate cancer, radiation cystitis. PROCEDURE: Cystoscopy, clot evacuation and fulguration of bladder lesions from radiation. SURGEON: Dr. Johan Goodwin ANESTHESIA: General. ESTIMATED BLOOD LOSS: Probably 50 mL. FINDINGS: There was a moderate amount of clot on the floor of the bladder. It was ellicked out. T here were numerous radiation changes to the bladder wall. The trigone was not involved, but it was m ore the floor of the bladder extending towards the posterior wall. There is no evidence of bladder t umor, foreign body or stone. There was clear efflux in both ureteral orifices. OPERATIVE TECHNIQUE: After obtaining written and verbal consent from the patient after receiving IV antibiotics, he was taken the operating suite. He was placed in supine position on the treatment tab le. PlexiPulses were placed on his lower extremities and turned on. He was given a general anesthet ic and oral obturator intubation. He was placed in the dorsal lithotomy position, sterilely prepped and draped. Cystoscopy was performed with a 22-[place] sheath. This was well lubricated, passed unde r direct vision through the male urethra into the urinary bladder with the aid of a 30-degree lens, a video camera and monitor. The bladder was then filled and emptied and examined with both 30 and the 70-degree lenses. Next, the instruments were removed and a 24-[place] resectoscope sheath with visua l obturator was used, a 30 degree lens was used to guide, it was well lubricated, passed through the male urethra and into the bladder. An [employer] resectoscope with a gyrus generator and a bladder fan or loop were used. We used this to cauterize the bladder lesions. We did this cauterizing the exte nsive lesions on the floor heading up to the posterior wall. Again, none of them around the ureteral orifices or trigone. We then removed the instruments, passed a Sapp catheter, waited about 15 shena anoop and irrigated again. The urine remained completely clear. At this point, he was awakened and ex tubated and taken by stretcher to recovery room.
[2017-12-25] MEDS ORDERED: traMADol HCl 50 MG TAB ONE (14:14)
[2017-12-25] MEDS ORDERED: traMADol HCl 50 MG TAB PO SCH (14:30)
[2017-12-25] MEDS ORDERED: Lidocaine 1% PF 5 ML VIAL ONE (15:41)
[2017-12-25] MEDS ORDERED: Ondansetron HCl/PF 4 MG/2 ML Vial ONE (15:41)
[2017-12-25] MEDS ORDERED: PROPOFOL 200 MG/20 ML VIAL ONE (15:41)
--- NOTE | 2018-01-05 05:50 | PQF ---
[facility] POST DISCHARGE CLINICAL DOCUMENTATION IMPROVEMENT CLARIFICATION FORM l Todays Date: 12/29/17 l Patients Name CATE FRANCE l l Admit Date 12/25/17 l Disch Date 12/25/17 Clay Hoister Name Kiran Quintero Email: [email or web address] Cell: [phone] Present Clinical Indicators - Signs / Symptoms Results and Location in Medical Record [ ] Documentation of: [ ] [ ] Documentation of: [ ] [ ] Documentation of: [ ] [ ] Documentation of: [ ] [ ] Risks [ ] [ ] [ ] Treatment [ ] RADIATION CYSTITIS Kindly specify the size of cauterized bladdder lesions in OP report. [ ] [ ] To be completed by Physician: DR. BARB COLEMAN The documentation in this patients record requires clarification to ensure coding compliance and accuracy. Check the appropriate box and include in your discharge summary. [ ] [ ] [ ] [ ] Please check this box if this does not apply to this patient [ ] Unable to determine [ ] Other diagnosis: Review the following information and exercise your independent professional judgment in responding to the clarification. Based upon the clinical findings, risk factors, and treatment, please clarify if you are treating one of the above probable or suspected diagnoses. Physician Signature: Date Time MTDD
== END 2017-12-25 15:58 | disposition home or self-care (01) ==
LOC: SDC 07:50
PROVIDERS: ATTEND Urology
PROC: 0TCB8ZZ Extirpation of Matter from Bladder, Via Natural or Artificial Opening Endoscopic (ICD-10-PCS; principal; 2017-12-25)
PROC: 0T5B8ZZ Destruction of Bladder, Via Natural or Artificial Opening Endoscopic (ICD-10-PCS; 2017-12-25)
DX: N30.41 Irradiation cystitis with hematuria (principal); I12.9 Hypertensive chronic kidney disease with stage 1 through stage 4 chronic kidney disease, or unspecified chronic kidney disease; N18.9 Chronic kidney disease, unspecified; Z85.46 Personal history of malignant neoplasm of prostate; Z79.899 Other long term (current) drug therapy; Z88.2 Allergy status to sulfonamides
CPT/HCPCS: 36415; 80048; 85025; 85610; 85730; 96374; 96376; J1956; J2001; J2405; J2704; J3010

== ENCOUNTER 2017-12-29 00:32 | Emergency (ER) | payer MEDICARE, BC ==
[2017-12-29 01:30] LABS: Bilirubin Negative (Negative); Blood, Urine Large (Negative); Clarity CLEAR (Clear); Glucose, Urine (Dipstick) Negative (Negative); Leukocyte Small (Negative); Nitrite Negative (Negative); Protein, Urine (Dipstick) 30 mg/dL (Neg-Trace); Specific Gravity, Urine 1.012 (1.002-1.036); Urobilinogen 0.2 mg/dL (0.2-1.0); pH, Urine 6.5 (5.0-9.0)
[2017-12-29 01:34] LABS: Bacteria/HPF None Seen HPF (None Seen); Hyaline Casts/LPF 0-3 HYALINE CAST LPF (0-3 Hyaline); Pathc Cast-AUWi Flag 0.43 (0-2.49); RBC/HPF GREATER THAN 50-TNTC HPF (0-3); Squamous Epithelial 0-3 HPF (0-3)
[2017-12-29 01:43] LABS: Renal Epithelial None Seen HPF (0-3); Transitional Epithelial 0-3 HPF (0-3)
== END 2017-12-29 09:17 | disposition home or self-care (01) ==
LOC: ERS 00:32
DX: R33.9 Retention of urine, unspecified (principal); E78.5 Hyperlipidemia, unspecified; I10 Essential (primary) hypertension; Z79.899 Other long term (current) drug therapy
CPT/HCPCS: 51702; 81003; 81015; 87086

== ENCOUNTER 2019-04-26 14:53 | Outpatient (CLI) | payer MEDICARE, BC ==
--- NOTE | 2019-04-26 15:14 | RAD ---
EXAM: XR Lumbar Spine 2 Or 3 View PROVIDED CLINICAL HISTORY: Other intervertebral disc degeneration, lumbar region. Patient states low back pain. COMPARISON: None FINDINGS: There are 5 nonrib-bearing lumbar-type vertebral bodies. Multilevel prominent bridging osteophytes ar e seen. There is narrowing of the L5-S1 intervertebral disc space with endplate degenerative changes seen. There is mild narrowing L4-5 intervertebral disc space. The vertebral body heights are within normal limits. No fracture or subluxation is identified. Facet degenerative changes are seen throughout the lumbar spine but greater in the lower lumbar spine. Vascular calcifications are seen in the abdominal aorta and involving the iliac arteries. Metallic de nsities overlie the right lower pelvis related to prior surgery and probably placement of mesh material overlying this region. IMPRESSION: Multilevel degenerative changes lumbar spine.
== END 2019-04-26 14:54 | disposition home or self-care (01) ==
LOC: BICRAD 14:53
PROVIDERS: ATTEND Physical Medicine & Rehabilitation
DX: M54.5 Low back pain (principal); M47.816 Spondylosis without myelopathy or radiculopathy, lumbar region
CPT/HCPCS: 72100

== ENCOUNTER 2021-03-01 10:54 | Outpatient (CLI) | payer MEDICARE, BC ==
[2021-03-01 11:48] LABS: #Eosinphils 0.1 10x3/uL (0.0-0.5); #Monocytes 0.6 10x3/uL (0.0-1.1); #Neutrophils 4.5 10x3/uL (1.5-8.4); %Basophils 0.6 % (0.0-2.0); %Eosinophils 1.3 % (0.0-6.0); %Lymphocytes 21.9 % (18.0-47.0); %Monocytes 9.1 % (0.0-10.0); %Neutrophils 66.8 % (40.0-75.0); Hemoglobin 11.4 g/dL (13.5-17.5); Mean Corpuscular HGB CONC 32.8 g/dL (32.0-36.0); Mean Corpuscular Hemoglobin 35.1 pg (27.0-33.0); Mean Corpuscular Volume 107.1 fl (81.2-95.1); Mean Platelet Volume 9.8 fl (7.4-10.4); Platelet Count 289 10x3/uL (150-450); RBC Distribution Width 13.2 % (11.5-14.5); Red Blood Cell (RBC) Count 3.25 10x6/uL (4.32-5.72); White Blood Cell (WBC) Count 6.8 10x3/uL (3.5-10.5)
[2021-03-01 12:13] LABS: ALT (SGPT) 20 U/L (8-55); AST (SGOT) 21 U/L (5-34); Alkaline Phosphatase 110 U/L (40-110); Anion Gap 11 mmol/L (10-20); BUN (Urea Nitrogen) 33 mg/dL (8.4-25.7); Bilirubin, Total 1.2 mg/dL (0.2-1.2); Calc. Creatinine Clearance 0 mL/min (70-130); Calcium 9.5 mg/dL (7.8-10.44); Carbon Dioxide 27 mmol/L (23-31); Chloride 106 mmol/L (98-107); Globulin 3.1 g/dL (2.4-3.5); Glucose 114 mg/dL (83-110); Potassium 4.8 mmol/L (3.5-5.1); Protein, Total 7.1 g/dL (5.8-8.1); Sodium 139 mmol/L (136-145)
[2021-03-01 12:32] LABS: Macrocytosis SLIGHT = 6-15 cells (100X) (0-5/hpf); Platelet Morphology Comment Appears Adequate
[2021-03-01 17:36] LABS: SARS-CoV-2 PCR by NAA Not Detected (NotDetected)
== END 2021-03-01 10:55 | disposition home or self-care (01) ==
LOC: LABBT 10:54
PROVIDERS: ATTEND Surgery
DX: Z01.818 Encounter for other preprocedural examination (principal); K40.91 Unilateral inguinal hernia, without obstruction or gangrene, recurrent; Z20.822 Contact with and (suspected) exposure to COVID-19
CPT/HCPCS: 80053; 85025; 93005; U0003; U0005; 93010

== ENCOUNTER 2021-03-06 05:43 | Day surgery (SDC) | payer MEDICARE, BC ==
[2021-03-04 12:37] VITALS: BMI 22.8
[2021-03-06] MEDS ORDERED: ceFAZolin 2 GM/DEX 5% 100 ML BAG ONE (06:01)
[2021-03-06] MEDS ORDERED: EPINEPHrine 1 MG/ML AMP ONE (06:38)
[2021-03-06] MEDS ORDERED: Bupivacaine 0.25% 10 ML VIAL ONE (06:38)
[2021-03-06] MEDS ORDERED: Fentanyl 100 MCG/2 ML VIAL ONE ×2 (06:43→08:55)
[2021-03-06] MEDS ORDERED: Lidocaine 1% PF 5 ML VIAL ONE (07:34)
[2021-03-06] MEDS ORDERED: PROPOFOL 200 MG/20 ML VIAL ONE (07:34)
[2021-03-06] MEDS ORDERED: Ondansetron PF 4 MG/2 ML Vial ONE (07:34)
[2021-03-06] MEDS ORDERED: Dexamethasone 20 MG/5 ML VIAL ONE (07:34)
== END 2021-03-06 10:00 | disposition home or self-care (01) ==
LOC: SDC 05:43
PROVIDERS: ATTEND Surgery
PROC: 0YU60JZ Supplement Left Inguinal Region with Synthetic Substitute, Open Approach (ICD-10-PCS; principal; 2021-03-06)
DX: K40.91 Unilateral inguinal hernia, without obstruction or gangrene, recurrent (principal); M06.9 Rheumatoid arthritis, unspecified; Z90.49 Acquired absence of other specified parts of digestive tract; Z98.890 Other specified postprocedural states; Z88.2 Allergy status to sulfonamides; Z79.899 Other long term (current) drug therapy; Z79.82 Long term (current) use of aspirin
CPT/HCPCS: C1781; J0171; J3010; S0020